=== PATIENT | female | born 1995 | race African-American/Black ===

== ENCOUNTER 2017-01-26 05:33 | Emergency (ER) | payer OTHER ==
[~2017-01-26 05:33] MED LIST: ONDA4TAB10 PO
--- NOTE | 2017-01-26 05:40 | ED.ADGEN ---
Past History Past Medical History: No Pertinent History Past Surgical History: Alcohol Use: Occasionally Drug Use: None Adult General Chief Complaint Chief Complaint '.. I ve been sick the last 10 days. .. fever, cough.. sore throat.. " HPI HPI Patient is a 21 year old female who presents with above hx and compliant of upper respiratory infection and nonproductive cough. Patient did not receive flu vaccination this year. No recent travel. No specific ill contacts. Patient is normally healthy. Patient states she is recently diagnosed as being . Pt. has a OB, but does not remember her name at this time. Review of Systems Review of Systems Constitutional: History of fever or chills [] Eyes: Denies change in visual acuity, redness, or eye pain [] HENT: History of nasal congestion and sore throat [] Respiratory: He of cough and wheezing Cardiovascular: No additional information not addressed in HPI [] GI: Denies abdominal pain, nausea, vomiting, bloody stools or diarrhea [] : Denies dysuria or hematuria [] Musculoskeletal: Denies back pain or joint pain [] Integument: Denies rash or skin lesions [] Neurologic: Denies headache, focal weakness or sensory changes [] Endocrine: Denies polyuria or polydipsia [] Family History Family History Noncontributory Current Medications Current Medications Current Medications Medications (Trade) Dose Ordered Sig/Maurice Start Time Stop Time Status Last Admin Dose Admin Albuterol Sulfate (Ventolin Hfa) 2 puff 1X ONCE 01/26/17 06:00 01/26/17 06:01 DC 01/26/17 06:19 2 PUFF Azithromycin (Zithromax) 500 mg 1X ONCE 01/26/17 06:00 01/26/17 06:01 DC 01/26/17 06:19 500 MG Allergies Allergies Allergies Coded Allergies Type Severity Reaction Last Updated Verified No Known Drug Allergies 02/20/16 No Physical Exam Physical Exam Constitutional: Well developed, well nourished, moderate distress, non-toxic appearance. [] HENT: Normocephalic, atraumatic, bilateral external ears normal, oropharynx moist, checked pharynx with post nasal drainage, no oral exudates, nose swollen turbinates and rhinorrhea Eyes: PERRLA, EOMI, conjunctiva normal, no discharge. [] Neck: Normal range of motion, no tenderness, supple, no stridor. [] Cardiovascular:Heart rate regular rhythm, no murmur [] Lungs & Thorax: Bilateral breath sounds with apexes with scattered wheezes auscultation [] Abdomen: Bowel sounds normal, soft, no tenderness, no masses, no pulsatile masses. [] Old surgery scar. Skin: Warm, dry, no erythema, no rash. [] Back: No tenderness, no CVA tenderness. [] Extremities: No tenderness, no cyanosis, no clubbing, ROM intact, no edema. [] Neurologic: Alert and oriented X 3, normal motor function, normal sensory function, no focal deficits noted. [] Psychologic: Affect anxious,, judgement normal, mood normal. [] Current Patient Data Vital Signs Vital Signs Date Time Temp Pulse Resp B/P Pulse Ox O2 Delivery O2 Flow Rate FiO2 01/26/17 05:53 97.5 97 20 99 Room Air Lab Results Laboratory Tests Test 01/26/17 06:05 Influenza Type A (Rapid) Negative (NEGATIVE) Influenza Type B (Rapid) Negative (NEGATIVE) Group A Streptococcus Rapid Negative (NEGATIVE) EKG EKG [] Radiology/Procedures Radiology/Procedures [] Course & Med Decision Making Course & Med Decision Making Pertinent Labs and Imaging studies reviewed. (See chart for details). Keep follow-up as scheduled with her OB. Take Zithromax 250 mg a day for 5 days. Use MDI 2 puffs 4 times a day. Return if any concerns. Push fluids. Benadryl 25-50 mg 4 times a day may be helpful for cough and drainage. [] Final Impression Final Impression 1. Upper respiratory infection 2. Pharyngitis 3. Bronchitis 4. History recently diagnosed as -urine results [] Problems: Dragon Disclaimer Dragon Disclaimer This electronic medical record was generated, in whole or in part, using a voice recognition dictation system. RICKY ZHU MD Jan 26, 2017 05:40
[2017-01-26 05:53] VITALS: BP 113/65
[2017-01-26] MEDS ORDERED: ALBUTEROL SULFATE 8GM INHALER. INH ONE (06:00)
[2017-01-26] MEDS ORDERED: AZITHROMYCIN 250 MG TABLET. PO ONE (06:00)
[2017-01-26] MEDS ORDERED: AZIT250T PO (06:20)
[2017-01-26 07:05] LABS: INFLUENZA A PATIENT NEGATIVE (NEGATIVE); INFLUENZA B PATIENT NEGATIVE (NEGATIVE)
== END 2017-01-26 06:45 | disposition home or self-care (01) ==
LOC: ER 05:33
DX: O99.611 Diseases of the digestive system complicating pregnancy, first trimester (principal); J02.9 Acute pharyngitis, unspecified; J40 Bronchitis, not specified as acute or chronic; Z3A.10 10 weeks gestation of pregnancy
CPT/HCPCS: 87070; 87804; 87880; 94640; 99284; J0456; J7613

== ENCOUNTER 2017-02-03 23:45 | Emergency (ER) | payer OTHER ==
[~2017-02-03 23:45] MED LIST changes: +AZIT250T PO
[2017-02-03 23:50] VITALS: BP 114/68
--- NOTE | 2017-02-04 00:45 | PHYS DOC ---
General Chief Complaint: SKIN RASH/ABSCESS Stated Complaint: ALLERGIC REACTION Time Seen by MD: 23:59 Source: patient Problems: History of Present Illness Initial Comments Patient here for rash. Patient states this rash started on . Was located initially over the or the anterior right shoulder, and has apparently spread to the area under the breast in the upper back. However, now is most prominent over the area of the right anterior axillary region, and seems to be getting more prominent at that side wall fading and the others. Patient did state that on Saturday, she began a prescription for amoxicillin which she apparently been given for some kind of upper respiratory infection. Patient also states that several weeks ago she was given a prescription for she thinks might be Zithromax, which she took instead of the amoxicillin which had been originally prescribed for her at that time. She is here tonight because she thinks the rash is getting worse over the right axillary area, she also felt short of breath earlier today. She's had no real fever or chills. There is no runny nose or sore throat. There is no trouble swallowing or talking. She did have some shortness of breath earlier but not currently. There is no chest pain. She's been able eat and drink without difficulty. She has some nausea and vomiting, she Anahy cyst early . This is not acutely changed or different today. There is no abdominal pain. There's no change in bowel or bladder habits. Her last period was in early November. She is and is currently followed by custom designer is on vitamins. She denies any acute focal extremity or neurologic complaints. Patient use some hydrocortisone cream on this which she said seemed to make it worse and burning. She also use Benadryl for itching but said that the tablets made her too sleepy to really keep after her children says she is unable to do so. Other than his noted there' s been nothing done for this at home. She has no other exposure to new medications, food, clothing, soap, bath or body products, laundry detergents, or other chemical exposures. Patient's past medical history is otherwise unremarkable except for preeclampsia with her previous . She is a nonsmoker and nonuser of ethanol. Allergies: Coded Allergies: No Known Drug Allergies (Unverified , 02/20/16) Past Medical History SYSTEMS ENG History: other Family History Significant Family History: cancer, diabetes Social History Smoker: non-smoker Alcohol: none Review of Systems All Other Systems: Reviewed and Negative Physical Exam General Appearance: WD/WN, no apparent distress Ear, Nose, Throat: normal ENT inspection, normal pharynx Neck: full range of motion, supple, normal inspection Respiratory: lungs clear, normal breath sounds, no respiratory distress Cardiovascular: regular rate, rhythm, no edema Gastrointestinal: non tender, soft, no organomegaly Back: no CVA tenderness, no vertebral tenderness Extremities: non-tender, normal inspection Neurologic/Psychiatric: alert, normal mood/affect, oriented x 3 Skin: rash Lymphatic: no adenopathy Comments Generally this is a well-developed well-nourished female in no acute distress. Vitals are as noted. Pertinent findings on physical exam shows ears and throat to be grossly clear. Lips and tongue are not swollen. There is no dysphagia or dysphonia or problems with secretions noted. Neck is supple without adenopathy or JVD. There's no meningeal signs. Chest is clear to auscultation bilaterally. Cardiovascular exam shows regular rate and rhythm without murmur. The abdomen is soft and nontender. Back is clear. Extremities show no cyanosis or edema. Examination of skin reveals the patient have a erythematous papular rash most probably over the area of the right anterior axillary region. There is some minimal similar rash over the left posterior shoulder. The remainder of the torso is essentially clear in the face is spared as well. There is no urticaria. There's no vesicles. There is no signs of sialitis. This overall appears to be consistent with a possible heat or moisture option, possibly contact issue. This does not appear to be most consistent with a drug reaction. Neurologic exam finds the patient awake alert oriented and cooperative. Remainder of physical exam is clinically unremarkable. Orders, Labs, Meds Old charts note this is her third ER visit this year alone. She's been seen here for URI and gastroenteritis. She's also been seen for migraine headache and UTI. I discussed with the patient uncertain cause of this rash. This may be related to her medication use. She's always stopped her antibiotic. However, this really doesn't look to be urticarial, multiforme, or macular in nature as one might expect with a drug reaction. In some ways as appears to be consistent with a little bit of a heat rash, or eczematous contact dermatitis. In any event , I discussed with her that while the exact etiology of the rash is unknown, weakness or to try to provide symptomatically before goes away by itself as I suspect it will. She says the Benadryl is overly sedating. Periactin can be used for itching in his class B for , so I written a prescription accordingly. She says the steroid seem to make this worse, so I prescribed some Eucerin cream as well. We discussed additional home care including including keeping the areas clean and dry and try not to itch. We also discussed the can sometimes cause rash and itching as well, but she's had no similar problems the previous . She does voiced understanding need to follow up with primary care or return to the ER sooner as needed if worsening anyway. She looks well, no acute discomfort or distress, okay for discharge home at this time. SHAYNE SANTOS MD Feb 04, 2017 00:18
== END 2017-02-04 00:42 | disposition home or self-care (01) ==
LOC: ER 23:54
DX: O26.899 Other specified pregnancy related conditions, unspecified trimester (principal); O21.0 Mild hyperemesis gravidarum; R21 Rash and other nonspecific skin eruption; E11.9 Type 2 diabetes mellitus without complications
CPT/HCPCS: 99282

== ENCOUNTER 2017-05-24 16:21 | Emergency (ER) | payer OTHER ==
[2017-05-24 16:46] VITALS: BP 109/63
[2017-05-24] MEDS ORDERED: IV NORMAL SALINE 1,000ML 1,000 ML IV SCH (17:32)
[2017-05-24 18:09] LABS: BASO # 0.1 x10^3/uL (0.0-0.2); BASO % 1 % (0-3); EOS # 0.2 x10^3/uL (0.0-0.7); EOS % 2 % (0-3); HEMATOCRIT 36.4 % (36.0-47.0); HEMOGLOBIN 12.4 g/dL (12.0-15.5); LYMPH # 1.8 x10^3/uL (1.0-4.8); LYMPH % 20 % (24-48); MEAN CORPUSCULAR HEMOGLOBIN 32 pg (25-35); MEAN CORPUSCULAR HGB CONC 34 g/dL (31-37); MEAN CORPUSCULAR VOLUME 94 fL (79-100); MONO # 0.6 x10^3/uL (0.0-1.1); MONO % 6 % (0-9); NEUT # 6.3 x10^3uL (1.8-7.7); NEUT % 71 % (31-73); PLATELET COUNT 177 x10^3/uL (140-400); RED BLOOD COUNT 3.87 x10^6/uL (3.50-5.40); RED CELL DISTRIBUTION WIDTH 12.8 % (11.5-14.5); WHITE BLOOD COUNT 8.9 x10^3/uL (4.0-11.0)
[2017-05-24 18:26] LABS: CALCIUM 8.4 mg/dL (8.5-10.1); CREATININE 0.5 mg/dL (0.6-1.0); GFR 183.4; MAGNESIUM 1.9 mg/dL (1.8-2.4); POTASSIUM 3.6 mmol/L (3.5-5.1)
--- NOTE | 2017-05-24 18:33 | PHYS DOC ---
Past History Past Medical History: Other Past Surgical History: Alcohol Use: None Drug Use: None Adult General Chief Complaint Chief Complaint: ABDOMINAL PAIN IN HPI HPI Patient is a 22 year old female who presents with complaint of dizziness and abdominal cramping. The patient is currently 27 weeks . Patient is receiving care and states that her has been progressing the patient notes that she was diagnosed with placenta previa. Patient states that she has become very lightheaded especially with standing up over the past 2-3 days. Patient states that she started having lower abdominal and pelvic cramping which has been going on over the past 2 days. Patient states that she has been trying to keep up on fluid intake but has had nausea which has been limiting her oral intake. Patient rates her abdominal cramping as 7 out of 10 on my evaluation. Patient denies pain in her back or chest. Due to worsening symptoms the patient came to the emergency department for evaluation. Patient denies any significant cardiac workup pulmonary history. Patient denies any fevers or dysuria. Review of Systems Review of Systems Constitutional: Lightheadedness, denies fever or chills [] Eyes: Denies change in visual acuity, redness, or eye pain [] HENT: Denies nasal congestion or sore throat [] Respiratory: Denies cough or shortness of breath [] Cardiovascular: Denies chest pain or edema [] GI: Abdominal pain, nausea, vomiting, denies, bloody stools or diarrhea [] : Denies vaginal bleeding, abnormal discharge, loss of fluid, dysuria or hematuria [] Musculoskeletal: Denies back pain or joint pain [] Integument: Denies rash or skin lesions [] Neurologic: Denies headache, focal weakness or sensory changes [] Current Medications Current Medications Current Medications Medications (Trade) Dose Ordered Sig/Maurice Start Time Stop Time Status Last Admin Dose Admin Sodium Chloride 1,000 ml @ 1,000 mls/hr Q1H 05/24/17 17:32 05/24/17 18:31 05/24/17 17:32 1,000 MLS/HR Allergies Allergies Allergies Coded Allergies Type Severity Reaction Last Updated Verified No Known Drug Allergies 02/20/16 No Physical Exam Physical Exam Constitutional: Alert, afebrile, no acute distress. [] HENT: Normocephalic, atraumatic, bilateral external ears normal, oropharynx moist, no oral exudates, nose normal. [] Eyes: PERRLA, EOMI, conjunctiva normal, no discharge. [] Neck: Normal range of motion, no tenderness, supple, no stridor. [] Cardiovascular:Heart rate regular rhythm, no murmur [] Lungs & Thorax: Bilateral breath sounds clear to auscultation [] Abdomen: Bowel sounds normal, gravid abdomen with fundal height above the umbilicus, no tenderness, no masses, no pulsatile masses. [] Skin: Warm, dry, no erythema, no rash. [] Back: No tenderness, no CVA tenderness. [] Extremities: No tenderness, no cyanosis, no clubbing, ROM intact, no edema. [] Neurologic: Alert and oriented X 3, normal motor function, normal sensory function, no focal deficits noted. [] Current Patient Data Vital Signs Vital Signs Date Time Temp Pulse Resp B/P (MAP) Pulse Ox O2 Delivery O2 Flow Rate FiO2 05/24/17 16:46 98.6 91 22 99 Room Air Lab Results Laboratory Tests Test 05/24/17 16:48 05/24/17 17:50 Glucose (Fingerstick) 109 mg/dL (70-99) H White Blood Count 8.9 x10^3/uL (4.0-11.0) Red Blood Count 3.87 x10^6/uL (3.50-5.40) Hemoglobin 12.4 g/dL (12.0-15.5) Hematocrit 36.4 % (36.0-47.0) Mean Corpuscular Volume 94 fL (79-100) Mean Corpuscular Hemoglobin 32 pg (25-35) Mean Corpuscular Hemoglobin Concent 34 g/dL (31-37) Red Cell Distribution Width 12.8 % (11.5-14.5) Platelet Count 177 x10^3/uL (140-400) Neutrophils (%) (Auto) 71 % (31-73) Lymphocytes (%) (Auto) 20 % (24-48) L Monocytes (%) (Auto) 6 % (0-9) Eosinophils (%) (Auto) 2 % (0-3) Basophils (%) (Auto) 1 % (0-3) Neutrophils # (Auto) 6.3 x10^3uL (1.8-7.7) Lymphocytes # (Auto) 1.8 x10^3/uL (1.0-4.8) Monocytes # (Auto) 0.6 x10^3/uL (0.0-1.1) Eosinophils # (Auto) 0.2 x10^3/uL (0.0-0.7) Basophils # (Auto) 0.1 x10^3/uL (0.0-0.2) Sodium Level 138 mmol/L (136-145) Potassium Level 3.6 mmol/L (3.5-5.1) Chloride Level 106 mmol/L (98-107) Carbon Dioxide Level 26 mmol/L (21-32) Anion Gap 6 (6-14) Blood Urea Nitrogen 8 mg/dL (7-20) Creatinine 0.5 mg/dL (0.6-1.0) L Estimated GFR (Cockcroft-Gault) 183.4 Glucose Level 66 mg/dL (70-99) L Calcium Level 8.4 mg/dL (8.5-10.1) L Magnesium Level 1.9 mg/dL (1.8-2.4) EKG EKG Not performed [] Radiology/Procedures Radiology/Procedures heart tones: 156 bpm [] Course & Med Decision Making Course & Med Decision Making Pertinent Labs and Imaging studies reviewed. (See chart for details) Patient given IV fluids in the emergency department. Patient's lab work is unremarkable at this time and heart tones are within normal limits. Patient's symptoms are likely result of dehydration. Advised continued rest and oral hydration at home for treatment of symptoms. Patient will also be prescribed Reglan to help with nausea. Advise follow-up in 3-5 days a patient's primary doctor and return to emergency department for any worsening symptoms. Patient voiced understanding and in agreement with treatment plan. Dragon Disclaimer Dragon Disclaimer This chart was dictated in whole or in part using Voice Recognition software in a busy, high-work load, and often noisy Emergency Department environment. It may contain unintended and wholly unrecognized errors or omissions. Departure Departure: Impression: Primary Impression: Dehydration Additional Impressions: Abdominal pain during Nausea Disposition: HOME, SELF-CARE Condition: STABLE Referrals: PCP,UNKNOWN (PCP) Patient Instructions: Abdominal Pain During , Dehydration, Adult, Nausea, Adult Additional Instructions: Continue rest and oral hydration at home for treatment of symptoms of dizziness and pelvic cramping. Follow-up with your INFRASTRUCTURE SOFTWARE ENGINEER in the next 3-5 days for reevaluation. Return to the emergency department for any worsening symptoms. Scripts Metoclopramide Hcl (REGLAN) 10 Mg Tablet 1 TAB PO TID Y for NAUSEA/VOMITING, #30 TAB Prov: AMALIA LAMAS MD 05/24/17 Problem Qualifiers Additional Impressions: Abdominal pain during Trimester: second trimester Qualified Codes: O26.892 - Other specified related conditions, second trimester; R10.9 - Unspecified abdominal pain AMALIA LAMAS MD May 24, 2017 18:33
[2017-05-24 18:52] LABS: BILIRUBIN,URINE NEG (NEG); CLARITY,URINE CLEAR; COLOR,URINE STRAW; GLUCOSE,URINE NEG (NEG)
[2017-05-24 18:53] LABS: BACTERIA,URINE FEW /HPF (0-FEW); NITRITE,URINE NEG (NEG); RBC,URINE 0 /HPF (0-2); SQUAMOUS EPITHELIAL CELL,UR OCC /LPF; UROBILINOGEN,URINE 0.2 mg/dL (0.2 mg/dL); WBC,URINE OCC /HPF (0-4)
[2017-05-24] MEDS ORDERED: METO10TA81 PO (19:06)
== END 2017-05-24 19:36 | disposition home or self-care (01) ==
LOC: ER 16:21
DX: O26.892 Other specified pregnancy related conditions, second trimester (principal); E86.0 Dehydration; R42 Dizziness and giddiness; R10.9 Unspecified abdominal pain; Z3A.27 27 weeks gestation of pregnancy; Z98.890 Other specified postprocedural states
CPT/HCPCS: 36415; 80048; 81001; 82947; 83735; 85027; 96360; 99284-25; J7030